=== PATIENT | female | born 1965 | race Two or more races ===

== ENCOUNTER 2017-08-24 06:53 | Day surgery (SDC) | payer OTHER ==
--- NOTE | 2017-08-23 09:47 | HP ---
Admitting History and Physical - Primary Care Physician PCP: Maurilio Cesar - Admission Chief Complaint: Chronic sinusitis History of Present Illness: Pr with chronic nasal congestion, nasal polyps, sinusitis refractory to medicla treatment History Source: Patient, Medical Record Limitations to Obtaining History: No Limitations - Past Medical History Cardiovascular: Yes: HTN, Hyperlipdemia Pulmonary: Yes: Asthma Gastrointestinal: Yes: GERD Rheumatology: Yes: Other (Back pain) ENT: Yes: Sinusitis Endocrine: Yes: Other (Vit DD deficiency) - Past Surgical History Past Surgical History: Yes: Hysterectomy, Tubal Ligation Home Medications - Home Medications Home Medications: Ambulatory Orders Cyclobenzaprine HCl 10 mg PO PRN 08/23/17 Home Medications (free text): zyrtec, motrin prn (told to hold), dulcolax, atorvastatin, ventolin, benicar, omeprazole, tricor, betamethasone cream. Family Disease History - Family Disease History Family History: Unremarkable Physical Examination Constitutional: Yes: Well Nourished, No Distress, Calm Eyes: Yes: WNL, Conjunctiva Clear HENT: Yes: WNL, Nasal Congestion Neck: Yes: WNL Cardiovascular: Yes: WNL Respiratory: Yes: WNL Gastrointestinal: Yes: WNL ...Rectal Exam: Yes: Deferred Musculoskeletal: Yes: WNL Extremities: Yes: WNL Imaging - Results Cat Scan: Report Reviewed, Image Reviewed Other: Other (elevated calcium, glucose, cholesterol repeat as outpt with PMD. Also repeat chest CT with pmd for pulm nodule) Problem List - Problems (1) Sinusitis Assessment/Plan: For surgical improvement Code(s): J32.9 - CHRONIC SINUSITIS, UNSPECIFIED Qualifiers: Chronicity: chronic
[2017-08-23 16:03] VITALS: BMI 30.7
[2017-08-24] MEDS ORDERED: COCAINE HCL 4% TOPICAL SOLUTION 4 ML BOTTLE TP ONE (07:12)
[2017-08-24] MEDS ORDERED: fentaNYL CITRATE 250 MCG/5 ML VIAL ONE (07:57)
[2017-08-24] MEDS ORDERED: ROCURONIUM BROMIDE 50 MG/5 ML VIAL ONE (07:57)
[2017-08-24] MEDS ORDERED: PROPOFOL 20 ML ONE (07:57)
[2017-08-24] MEDS ORDERED: MIDAZOLAM HCL 2 MG/2 ML SINGLE DOSE VIAL ONE ×2 (07:58→08:07)
[2017-08-24] MEDS ORDERED: ceFAZolin SODIUM 1 GM VIAL IVPB ONE (08:25)
[2017-08-24] MEDS ORDERED: ceFAZolin SODIUM 1 GM VIAL ONE ×2 (08:28→08:49)
[2017-08-24] MEDS ORDERED: ePHEDrine SULFATE 50 MG/1 ML AMPULE ONE (08:42)
[2017-08-24] MEDS ORDERED: PHENYLEPHRINE HCL 10 MG/1 ML SINGLE DOSE VIAL ONE (08:42)
[2017-08-24] MEDS ORDERED: LIDOCAINE HCL/PF 2% SDV 5ML VIAL ONE (08:49)
[2017-08-24] MEDS ORDERED: DEXAMETHASONE SOD PHOSPHATE 4 MG/1 ML VIAL ONE (08:49)
[2017-08-24] MEDS ORDERED: ALBUTEROL SO4 18 GM HFA INHALER IH ONE (08:49)
[2017-08-24] MEDS ORDERED: BACITRACIN 15 GM TUBE TOPICAL OINTMENT ONE (09:09)
[2017-08-24] MEDS ORDERED: ONDANSETRON 4 MG/2 ML VIAL IVPUSH PRN (09:18)
[2017-08-24] MEDS ORDERED: oxyCODONE HCL 5 MG TABLET PO PRN (09:18)
[2017-08-24] MEDS ORDERED: NEOSTIGMINE METHYLSULFATE 0.5 MG/ML - 10 ML MDV ONE (09:21)
[2017-08-24] MEDS ORDERED: GLYCOPYRROLATE 0.2 MG/1 ML VIAL ONE (09:22)
[2017-08-24] MEDS ORDERED: LACTATED RINGERS SOLUTION 1,000 ML IV SCH (09:30)
[2017-08-24 09:50] VITALS: TEMP 97.8
[2017-08-24 14:44] VITALS: BP 136/77; PULSE 64
--- NOTE | 2017-08-25 13:02 | PATH ---
Surgical Pathology Report Patient Name: ADRIAN DICKSON [facility]. Rec. #: [id number] /Age/Gender: 1965 (Age: 52) / F Account: [id number] Location: [facility] Taken: 08/24/2017 Received: 08/24/2017 Reported: 08/25/2017 Physicians: Ji Elizondo M.D. Specimen(s) Received ETHMOID TISSUE AND NASAL POLYPS Clinical History Chronic sinusitis Final Diagnosis ETHMOID SINUS TISSUE AND NASAL POLYPS, MAXILLARY ANTROSTOMY AND ETHMOIDECTOMY: CHRONIC SINUSITIS AND INFLAMMATORY NASAL POLYPS. Electronically Signed Rachael Chowdhury M.D. Gross Description Received in formalin labeled "ethmoid sinus tissue and nasal polyps," is a 2.2 x 2.0 x 0.2 cm aggregate of stephenson-pink soft tissue fragments. The specimen is entirely submitted in one cassette. /08/24/201708/24/2017
--- NOTE | 2017-09-10 02:09 | OP ---
DATE OF OPERATION: 08/24/2017 PREOPERATIVE DIAGNOSIS: Chronic sinusitis, nasal polyposis, turbinate hypertrophy, and deviated septum. POSTOPERATIVE DIAGNOSIS: Chronic sinusitis, nasal polyposis, turbinate hypertrophy, and deviated septum. PROCEDURE: Bilateral anterior ethmoidectomy, maxillary antrostomy, frontal sinus balloon dilatation, inferior turbinate outfracture and cautery. DESCRIPTION OF PROCEDURE: Patient was brought to the operating room and placed under general anesthesia. A XYDO Navigation Sinus instrument was placed on her face and calibrated. Her nose was decongested with cottonoids with 4% cocaine and 1% lidocaine with 1:100,000 epinephrine was injected into the septum and lateral nasal wall and inferior turbinates, nasal polyps and middle turbinate. The patient was prepped and draped. Her nose was examined using a 0-degree endoscope. Polyps were noted emanating off of the middle turbinate medially and laterally on both sides and the septum was deviated, but did not block entry to the middle meatus on either side. I elected not to perform a septoplasty. The procedure was then initiated on the right side. I medialized the middle turbinate with a freer and using a Medtronic-guided seeker, I entered the frontal sinus. I then guided a balloon with the Medtronic into the frontal sinus and insufflated the balloon twice for 5 seconds a piece and then I withdrew it. I then medialized the middle turbinate on the left side and entered the frontal sinus with the frontal sinus seeker and then subsequently with the balloon device, I inflated the balloon two times for 5 seconds a piece. I withdrew the balloon device. I then used the microdebrider to remove polypoid tissue from the middle turbinate medially, inferiorly, and laterally. In doing so, I also entered the anterior ethmoid cavity and followed this back to the ground lamella. I identified the uncinate and used a guided Avatar Realitytronic maxillary balloon and using a tip-down technique, I entered the maxillary sinus and dilated the antrum twice with the balloon device with two separate insufflations. I then placed a curved suction to maxillary sinus and irrigated out the maxillary sinus. The cottonoid was replaced into the ethmoid cavity on the right side. Then I took out the polyps from the left side by using the guided microdebrider, removing polyps from the medial and lateral middle turbinate and the ethmoid was entered and the anterior ethmoid was exonerated using the microdebrider down to the ground lamella. Once again, after identifying the uncinate, the maxillary balloon was placed into the maxillary sinus and insufflated twice. After withdrawing the balloon, I irrigated the sinus with a curved suction, also using the guided Medtronic suction. The ethmoid was then packed with cottonoid with cocaine. I outfractured first the right and then the left inferior turbinate using a long nasal speculum. Then, I used a bipolar Elmed device with the needles placed into the inferior turbinate with three separate passes on a setting of 5. I cauterized submucosally on the inferior turbinate. I performed three passes on the left inferior turbinate after out-fracturing it with a long nasal speculum. The ethmoid cavities were packed with regular NasoPore packing on bacitracin. The nasal cavity was suctioned and then the patient was awaked and extubated in the operating room, brought to the recovery room in stable condition. STACIE JAEGER M.D. [id number]
== END 2017-08-24 13:20 | disposition home or self-care (01) ==
LOC: JASU-SURG 06:53
PROVIDERS: ATTEND Otolaryngology
PROC: 09BV8ZZ Excision of Left Ethmoid Sinus, Via Natural or Artificial Opening Endoscopic (ICD-10-PCS; principal; 2017-08-24 08:00)
PROC: 09BU8ZZ Excision of Right Ethmoid Sinus, Via Natural or Artificial Opening Endoscopic (ICD-10-PCS; 2017-08-24 08:00)
DX: J32.8 Other chronic sinusitis (principal); J33.8 Other polyp of sinus; J34.3 Hypertrophy of nasal turbinates; J34.2 Deviated nasal septum
CPT/HCPCS: 88304-TC; 94760

== ENCOUNTER 2019-08-03 23:13 | Emergency (ER) | payer OTHER ==
[2019-08-03 23:34] VITALS: TEMP 98; BMI 31.2
--- NOTE | 2019-08-04 00:18 | PDOC ---
History of Present Illness - General Chief Complaint: Chest Pain Stated Complaint: CHEST PAIN History Source: Patient Exam Limitations: No Limitations - History of Present Illness Initial Comments: 08/04/19 00:17 54 yo female pmh HTN, HLD presents to the ED for CP. Pt states while walking up stairs today she felt sudden onset CP, worse with taking deep breaths and reproducible on palpation. Pt denies hx of ME, CAD, normal Echo a few years ago and does not follow with cardiology. Denies N/V, diaphoresis, radiation of pain , F/C, abdominal pain, back pain or changes in bowel or bladder habits Past History - Past Medical History Allergies/Adverse Reactions: Allergies Allergy/AdvReac Type Severity Reaction Status Date / Time No Known Drug Allergies Allergy Verified 08/03/19 23:34 Home Medications: Ambulatory Orders Azithromycin 250 mg PO DAILY #4 tablet 08/04/19 Anemia: No Asthma: Yes ("mild"occas) Cancer: (heart murmur) Cardiac Disorders: No CVA: No COPD: No CHF: No Dementia: No Diabetes: No GI Disorders: Yes (gastritis) Disorders: No HTN: Yes Hypercholesterolemia: Yes Liver Disease: No Seizures: No Thyroid Disease: No - Surgical History Orthopedic Surgery: Yes (left shoulder) - Psycho Social/Smoking Cessation Hx Smoking History: Never smoked Have you smoked in the past 12 months: Yes Number of Cigarettes Smoked Daily: 10 'Breaking Loose' booklet given: 08/24/17 Hx Alcohol Use: No Drug/Substance Use Hx: No Substance Use Type: None Hx Substance Use Treatment: No Review of Systems - Review of Systems Constitutional: Yes: See HPI HEENTM: Yes: See HPI Respiratory: Yes: See HPI Cardiac (ROS): Yes: See HPI ABD/GI: Yes: See HPI : Yes: See HPI Musculoskeletal: Yes: See HPI Integumentary: Yes: See HPI Neurological: Yes: See HPI *Physical Exam - Vital Signs Last Vital Signs Temp Pulse Resp BP Pulse Ox 98.0 F 73 18 176/89 H 100 08/03/19 23:32 08/03/19 23:32 08/03/19 23:32 08/03/19 23:32 08/03/19 23:32 - Physical Exam General Appearance: Yes: Nourished, Appropriately Dressed. No: Apparent Distress HEENT: positive: EOMI Neck: positive: Supple. negative: Carotid bruit Respiratory/Chest: positive: Lungs Clear, Normal Breath Sounds. negative: Accessory Muscle Use, Labored Respiration, Rapid RR, Crackles, Rales, Rhonchi, Stridor, Wheezing Cardiovascular: positive: Regular Rhythm, Regular Rate, S1, S2. negative: Edema , JVD, Murmur Vascular Pulses: Dorsalis-Pedis (R): 3+, Doralis-Pedis (L): 3+ Musculoskeletal: negative: CVA Tenderness Extremity: positive: Normal Capillary Refill, Normal Inspection Integumentary: positive: Normal Color, Dry, Warm Neurologic: positive: Fully Oriented, Alert, Normal Mood/Affect, Normal Response ED Treatment Course - LABORATORY CBC & Chemistry Diagram: 08/04/19 00:22 08/04/19 00:22 - RADIOLOGY Radiology Studies Ordered: Category Date Time Status CHEST X-RAY PORTABLE* [RAD] Stat Radiology 08/04/19 00:14 Ordered Medical Decision Making - Medical Decision Making 08/04/19 05:34 54 yo female pmh HTN, HLD presents to the ED for CP. Pt states while walking up stairs today she felt sudden onset CP, worse with taking deep breaths and reproducible on palpation. Pt denies hx of ME, CAD, normal Echo a few years ago and does not follow with cardiology. Denies N/V, diaphoresis, radiation of pain , F/C, abdominal pain, back pain or changes in bowel or bladder habits vitals stable EKG X2, no sig changes, no signs of acute ischemia, rate 61 labs WNL Trops neg x2 Pt has resolution of symptoms, ambulates without recurrence of pain and pain is worse on palpation. Due to pleuritic nature, with give short course of azithromycin for likely bronchitis and have pt f/u with PCP and Cardiology as an outpatient pt understands and agrees with plan Discharge - Discharge Information Problems reviewed: Yes Clinical Impression/Diagnosis: Chest pain Condition: Stable Disposition: HOME - Admission No - Additional Discharge Information Prescriptions: Azithromycin 250 mg PO DAILY #4 tablet - Follow up/Referral Referrals: Latia Beyer MD [Primary Care Provider] - Taurus Arreaga MD [Staff Physician] - - Patient Discharge Instructions Patient Printed Discharge Instructions: DI for Atypical Chest Pain, DI for Chest Pain Additional Instructions: Please see your Primary Doctor within the next 48 hours. Make an appointment to see the Sewing Machine Operator Floorperson referred to you. Take the antibiotics prescribed to you for the next 5 days until completed. Return to the ER for new or concerning symptoms. Thank you - Post Discharge Activity
[2019-08-04 00:48] LABS: BASO % 0.9 % (0-2.0); EOS % 2.5 % (0-4.5); HEMATOCRIT 38.1 % (32.4-45.2); HEMOGLOBIN 12.9 GM/dL (10.7-15.3); LYMPH % 35.1 % (8-40); MCH 31.5 pg (25.7-33.7); MCHC 33.9 g/dl (32.0-36.0); MEAN PLT VOLUME 8.2 fl (7.5-11.1); MONO % 4.6 % (3.8-10.2); NEUT % 56.9 % (42.8-82.8); PLATELET COUNT 295 K/MM3 (134-434); RBC 4.09 M/mm3 (3.60-5.2); RDW 13.7 % (11.6-15.6); WHITE BLOOD COUNT 10.4 K/mm3 (4.0-10.0)
[2019-08-04 01:29] LABS: ALBUMIN 3.7 g/dl (3.4-5.0); ALK PHOS 122 U/L (45-117); ANION GAP 7 MMOL/L (8-16); BILIRUBIN,TOTAL 0.2 mg/dL (0.2-1); BLOOD UREA NITROGEN 18.4 mg/dL (7-18); CHLORIDE 107 mmol/L (98-107); CO2 25 mmol/L (21-32); CREATININE 0.7 mg/dL (0.55-1.3); GLUCOSE,RANDOM 130 mg/dL (74-106); POTASSIUM 3.7 mmol/L (3.5-5.1); SGOT/AST 26 U/L (15-37); SGPT/ALT 49 U/L (13-61); SODIUM 139 mmol/L (136-145); TOT PROT 7.6 g/dl (6.4-8.2)
[2019-08-04] MEDS ORDERED: KETOROLAC TROMETHAMINE 15 MG/ML VIAL IVPUSH ONE (01:31)
[2019-08-04] MEDS ORDERED: KETOROLAC TROMETHAMINE 15 MG/ML VIAL ONE (01:40)
[2019-08-04] MEDS ORDERED: AZITHROMYCIN 500 MG TABLET PO ONE (05:46)
[2019-08-04] MEDS ORDERED: AZITHROMYCIN 250 MG TABLET ONE (05:50)
[2019-08-04 06:09] VITALS: BP 150/70; PULSE 62
--- NOTE | 2019-08-04 10:58 | EKG ---
Test Reason : Blood Pressure : / mmHG Vent. Rate : 061 BPM Atrial Rate : 061 BPM P-R Int : 150 ms QRS Dur : 098 ms QT Int : 432 ms P-R-T Axes : -08 053 -07 degrees QTc Int : 434 ms NORMAL SINUS RHYTHM NONSPECIFIC INTRAVENTRICULAR CONDUCTION DEFECT ABNORMAL ECG Confirmed by ANDRES MILLER MD ([id number]) on 08/04/2019 10:58:35 AM Referred By: Confirmed By:ANDRES MILLER MD
--- NOTE | 2019-08-04 11:02 | EKG ---
Test Reason : Blood Pressure : / mmHG Vent. Rate : 069 BPM Atrial Rate : 069 BPM P-R Int : 126 ms QRS Dur : 096 ms QT Int : 414 ms P-R-T Axes : 009 045 036 degrees QTc Int : 443 ms NORMAL SINUS RHYTHM WHEN COMPARED WITH ECG OF 09-JUL-2006 09:38, NO SIGNIFICANT CHANGE WAS FOUND POOR DATA QUALITY, INTERPRETATION MAY BE ADVERSELY AFFECTED Confirmed by ANDRES MILLER MD ([id number]) on 08/04/2019 11:02:04 AM Referred By: Confirmed By:ANDRES MILLER MD
== END 2019-08-04 06:09 | disposition home or self-care (01) ==
LOC: JER 23:13
PROC: 3E0333Z Introduction of Anti-inflammatory into Peripheral Vein, Percutaneous Approach (ICD-10-PCS; principal; 2019-08-03)
DX: R07.9 Chest pain, unspecified (principal); I10 Essential (primary) hypertension; E78.5 Hyperlipidemia, unspecified; R01.1 Cardiac murmur, unspecified; Z87.09 Personal history of other diseases of the respiratory system; Z87.19 Personal history of other diseases of the digestive system
CPT/HCPCS: 36415; 71045-TC-FY; 80053; 82550; 82553; 83735; 84484; 85025; 93005; 93010; 99285-25

== ENCOUNTER 2021-02-05 20:59 | Emergency (ER) | payer OTHER ==
[2021-02-05 21:31] VITALS: TEMP 98.4; BMI 31.6
[2021-02-05] MEDS ORDERED: LIDOCAINE PATCH REMOVAL MC SCH (22:00)
[2021-02-05] MEDS ORDERED: LIDOCAINE 5% TOPICAL PATCH TP ONE (23:06)
[2021-02-05] MEDS ORDERED: METHOCARBAMOL 500 MG TABLET PO ONE (23:06)
[2021-02-05] MEDS ORDERED: KETOROLAC TROMETHAMINE 30 MG/1 ML VIAL IVPUSH ONE (23:07)
[2021-02-05] MEDS ORDERED: METHOCARBAMOL 500 MG TABLET ONE ×2 (23:16→23:36)
[2021-02-05] MEDS ORDERED: KETOROLAC TROMETHAMINE 15 MG/ML VIAL ONE (23:17)
[2021-02-05] MEDS ORDERED: LIDOCAINE 5% TOPICAL PATCH ONE (23:17)
[2021-02-05] MEDS ORDERED: KETOROLAC TROMETHAMINE 30 MG/1 ML VIAL ONE (23:23)
[2021-02-05 23:49] LABS: BASO % 1.2 % (0-2.0); HEMATOCRIT 38.2 % (32.4-45.2); HEMOGLOBIN 13.4 GM/dL (10.7-15.3); LYMPH % 40.8 % (8-40); MCH 31.7 pg (25.7-33.7); MEAN CELL VOLUME 90.5 fl (80-96); MEAN PLT VOLUME 7.8 fl (7.5-11.1); MONO % 5.2 % (3.8-10.2); NEUT % 49.8 % (42.8-82.8); PLATELET COUNT 286 10^3/uL (134-434); RBC 4.22 M/mm3 (3.60-5.2); RDW 13.3 % (11.6-15.6); WHITE BLOOD COUNT 7.9 K/mm3 (4.0-10.0)
[2021-02-06 00:07] LABS: CHLORIDE 105 mmol/L (98-107); SODIUM 141 mmol/L (136-145)
[2021-02-06 00:10] LABS: ANION GAP 7 MMOL/L (8-16); BLOOD UREA NITROGEN 19.2 mg/dL (7-18); CO2 28 mmol/L (21-32); GLUCOSE,RANDOM 94 mg/dL (74-106)
[2021-02-06] MEDS ORDERED: amLODIPine BESYLATE 10 MG TABLET (FP) PO ONE (00:10)
[2021-02-06 00:13] LABS: CREATININE 0.9 mg/dL (0.55-1.3); SGOT/AST 29 U/L (15-37); SGPT/ALT 44 U/L (13-61)
[2021-02-06 00:15] LABS: BILIRUBIN,TOTAL 0.4 mg/dL (0.2-1)
[2021-02-06 00:16] LABS: ALK PHOS 99 U/L (45-117)
[2021-02-06] MEDS ORDERED: amLODIPine BESYLATE 5 MG TABLET (FP) ONE (01:27)
[2021-02-06 02:18] VITALS: BP 152/90; PULSE 70
== END 2021-02-06 02:24 | disposition home or self-care (01) ==
LOC: JER 20:59
PROC: 3E033GC Introduction of Other Therapeutic Substance into Peripheral Vein, Percutaneous Approach (ICD-10-PCS; principal; 2021-02-05)
DX: M79.602 Pain in left arm (principal)
CPT/HCPCS: 36415; 80053; 82550; 82553; 84484; 85025; 93005; 93010; 99284-25

== ENCOUNTER 2023-08-29 16:45 | Emergency (ER) | payer OTHER ==
[2023-08-29 16:51] VITALS: BP 104/71; PULSE 79; RESP 18; TEMP 97.9; BMI 30.4
[2023-08-29] MEDS ORDERED: NAPROXEN 500 MG TABLET ONE (17:16)
[2023-08-29] MEDS: NAPROXEN 500 MG TABLET PO ONE (17:17)
== END 2023-08-29 18:14 | disposition home or self-care (01) ==
LOC: JER 16:45 → JERFT 16:45
DX: M25.562 Pain in left knee (principal); K59.00 Constipation, unspecified
CPT/HCPCS: 99283-25